=== PATIENT | female | born 1950 | race Caucasian/White ===

== ENCOUNTER 2017-06-08 09:28 | Emergency (ER) | payer MEDICARE, OTHER ==
[~2017-06-08] VITALS: Ht 162.6 cm; Wt 88.6 kg
[2017-06-08 09:32] VITALS: BP 133/92; TEMP 97.2
[2017-06-08] MEDS ORDERED: EXCEDRIN1 TAB PO (09:37)
[2017-06-08] MEDS ORDERED: MOTRIN 200200 MG/TAB PO (09:38)
[2017-06-08] MEDS ORDERED: TENORMIN 2525 MG/TAB PO (09:41)
[2017-06-08] MEDS ORDERED: NORCO 325 MG-51 TAB PO (12:17)
[2017-06-08] MEDS ORDERED: ZOFRAN 4MG T4 MG/TAB PO (12:17)
[2017-06-08 12:43] VITALS: PULSE 65
== END 2017-06-08 12:43 | disposition home or self-care (01) ==
LOC: COL.ER 09:28
DX: S52.121A Displaced fracture of head of right radius, initial encounter for closed fracture (principal); S93.401A Sprain of unspecified ligament of right ankle, initial encounter; I10 Essential (primary) hypertension; W10.9XXA Fall (on) (from) unspecified stairs and steps, initial encounter; Y92.009 Unspecified place in unspecified non-institutional (private) residence as the place of occurrence of the external cause
CPT/HCPCS: J2405; J3010